=== PATIENT | male | born 1945 ===

== ENCOUNTER 2018-11-23 09:46 | Emergency (ER) | payer OTHER ==
--- NOTE | 2018-11-23 10:54 | C.PDOC ---
History Of Present Illness 73 year old male presents to the ED complaining of left chest pain that started 2 days ago. Reports pain is worse with movement and deep breathing. Also reports nonproductive cough for 2 days. Denies any fever, shortness of breath, palpitations, nausea, or rash. Time Seen by Provider: 11/23/18 09:58 Chief Complaint (Nursing): Chest Pain History Per: Patient History/Exam Limitations: no limitations Onset/Duration Of Symptoms: Days (2) Current Symptoms Are (Timing): Still Present Quality: "Pain" Exacerbating Factors: Movement, Deep Breathing Past Medical History Reviewed: Historical Data, Nursing Documentation, Vital Signs Primary Care Provider: Gabino Hawley - Medical History PMH: HTN, Hypercholesterolemia Other Surgeries: Hx of surgeries. Family History: States: No Known Family Hx - Social History Hx Tobacco Use: No Hx Alcohol Use: No Hx Substance Use: No - Immunization History Hx Tetanus Toxoid Vaccination: No Hx Influenza Vaccination: Yes Hx Pneumococcal Vaccination: No Review Of Systems Constitutional: Negative for: Fever, Chills Cardiovascular: Positive for: Chest Pain. Negative for: Palpitations Respiratory: Positive for: Cough. Negative for: Shortness of Breath Gastrointestinal: Negative for: Nausea, Vomiting Skin: Negative for: Rash Physical Exam - Physical Exam Appears: Non-toxic, No Acute Distress, Other (comfortable ) Skin: Warm, Dry, No Rash Head: Normacephalic Eye(s): bilateral: Normal Inspection, PERRL, EOMI Nose: Normal Oral Mucosa: Moist Neck: Supple Chest: Tenderness (Tender to palpation to left upper chest immediately below clavicle ) Cardiovascular: Rhythm Regular, No Murmur Respiratory: Normal Breath Sounds, No Rales, No Rhonchi, No Wheezing Gastrointestinal/Abdominal: Soft, No Tenderness, No Guarding, No Rebound Extremity: No Pedal Edema Neurological/Psych: Oriented x3, Normal Speech Gait: Steady ED Course And Treatment ECG: Interpreted By Me, Viewed By Me ECG Rhythm: Sinus Tachycardia Interpretation Of ECG: Left axis deviation. No acute ST/T wave changes Rate From EC Progress Note: CXR and EKG ordered. Patient treated with Flexeril and Motrin. Disposition Counseled Patient/Family Regarding: Studies Performed, Diagnosis, Need For Followup, Rx Given - Disposition Referrals: Gabino Hawley MD [Medical Doctor] - Disposition: HOME/ ROUTINE Disposition Time: 12:00 Condition: STABLE Additional Instructions: FOLLOW UP WITH YOUR DOCTOR/CLINIC IN 1-2 DAYS USE MEDICATIONS NEEDED RETURN TO EMERGENCY ROOM IF YOUR SYMPTOMS BECOME WORSE SEGUIR CON BERMUDEZ MDICO / CLNICA EN 1-2 ALVAREZ UTILICE MEDICAMENTOS SARAH SE NECESITE VUELVA A LA UNRULY DE EMERGENCIA SI FLAKO SNTOMAS SE HACEN PEOR Prescriptions: Cyclobenzaprine [Flexeril] 10 mg PO BID PRN #15 tab PRN Reason: Muscle Spasm Ibuprofen [Motrin Tab] 600 mg PO Q6 PRN #30 tab PRN Reason: fever/pain Instructions: Costochondritis (DC) Forms: IPXI (Macedonian) Print Language: URDU - Clinical Impression Clinical Impression: Chest wall pain, Costochondritis - Scribe Statement The provider has reviewed the documentation as recorded by the Yodit Almonte All medical record entries made by the Cataibalison were at my direction and personally dictated by me. I have reviewed the chart and agree that the record accurately reflects my personal performance of the history, physical exam, medical decision making, and the department course for this patient. I have also personally directed, reviewed, and agree with the discharge instructions and disposition.
--- NOTE | 2018-11-23 11:56 | RAD ---
Date of service: 11/23/2018 HISTORY: LEFT CHEST WALL PAIN, COUGH COMPARISON: No prior. TECHNIQUE: Chest PA and lateral views FINDINGS: LUNGS: No active pulmonary disease. PLEURA: No significant pleural effusion identified. No pneumothorax apparent. CARDIOVASCULAR: No aortic atherosclerotic calcification present. Normal cardiac size. No pulmonary vascular congestion. OSSEOUS STRUCTURES: No significant abnormalities. VISUALIZED UPPER ABDOMEN: Normal. OTHER FINDINGS: None. IMPRESSION: No active disease.
[2018-11-23 12:31] VITALS: BP 134/87; PULSE 64; RESP 15; TEMP 98; O2SAT 97
--- NOTE | 2018-11-24 12:01 | CARD ---
APPROVED REPORT Date of service: 11/23/2018 EKG Measurement Heart [id number] <Conclusion> Sinus tachycardia Left axis deviation Abnormal ECG
== END 2018-11-23 12:30 | disposition home or self-care (01) ==
LOC: C.ER 09:46
DX: M94.0 Chondrocostal junction syndrome [Tietze] (principal); R07.89 Other chest pain